=== PATIENT | female | born 1940 | race Caucasian/White ===

== ENCOUNTER → 2017-05-27 | Outpatient (CLI) | payer BC ==
[~2017-05-27] MED LIST: ALPHTAB4 PO; ALPR-411 PO; ASPI81TA28 PO; ATEN50TA PO; CALC500C70 PO; CETI10TA84 PO; CHOL2000 PO; CYAN100020 PO; MISCCAP80 PO; OMEG10007 PO; WHEATAB2 PO
--- NOTE | 2017-05-27 09:27 | DIAGNOSTIC IMAGING REPORT ---
(CHEST) THORAX WITHOUT CLINICAL HISTORY: R91.1 Lung [id number] Adenocarcinoma of left lung, stage COMPARISON STUDY: 08/08/2016 CT DOSE: 347.36 mGycm TECHNIQUE: CT of the thorax was performed from the thoracic inlet to the lung bases. Images are reviewed in the axial, sagittal, and coronal planes. IV contrast was not administered for this examination. A dose lowering technique was utilized adhering to the principles of ALARA. FINDINGS: Thyroid: There is a multinodular thyroid gland. The largest nodule the left measures 15 mm. The largest nodule the right measures 11 mm. Thoracic aorta: The thoracic aorta is normal in course and caliber, noting standard 3 vessel arch anatomy. Heart: The heart is normal in size and configuration, without pericardial effusion. Lungs and pleural spaces: There is pulmonary emphysema. The patient is status post a left upper lobectomy. Clustered nodules within the left lower lobe remain similar. The largest measures 8 mm. There is a fiducial marker adjacent to these nodules. There is a stable 3 mm right upper lobe point nodule as visualized in image #[id number]. There is a stable 4 mm right upper lobe pulmonary nodule as visualized in image #152/[id number]. There is a stable 3 mm right upper lobe point nodule as visualized in image #111/316. Mediastinum: There is no pathologic adenopathy by size criteria. Corinna: There is no evidence of pathologic hilar adenopathy given the limitations of a noncontrast study. Axilla: There is no nodes of pathologic axillary lymphadenopathy Upper abdomen: There is a 7 mm hepatic hypodensity unchanged the prior study. There is a 2 cm hypodense lesion arising from the left kidney. This remains unchanged in size from the prior study. Hypodensity Skeletal structures: There are no lytic or blastic osseous lesions. IMPRESSION: 1. Postsurgical changes of a prior left upper lobectomy 2. Stable nonspecific clustered nodules within the superior aspect of the left lower lobe. 3. Stable low suspicion subcentimeter right lung pulmonary nodules 4. No evidence of pathologic adenopathy Electronically signed by: Addi Allison M.D. 05/27/2017 9:26 AM Dictated Date/Time: 05/27/2017 9:17 AM
== END | disposition home or self-care (01) ==
LOC: C.CTS 08:57
PROVIDERS: ATTEND Surgery
DX: C34.92 Malignant neoplasm of unspecified part of left bronchus or lung (principal); R91.1 Solitary pulmonary nodule